=== PATIENT | female | born 1965 | race Caucasian/White ===

== ENCOUNTER 2024-05-25 07:27 | Emergency (ER) | payer MEDICAID, SELFPAY ==
[2024-05-25 07:37] VITALS: BP 139/82; PULSE 80; RESP 18; TEMP 37.3; O2SAT 97; BMI 42.8
--- NOTE | 2024-05-25 07:42 | XR_ITS ---
Examination: CT abdomen and pelvis without contrast. Coronal 3-D reconstructions. Sagittal 2-D reconstructions. Date and time of exam:May 25, 2024 0813 hours COMPARISON: May 18, 2022 INDICATIONS: Generalized abdominal pain with nausea beginning 3 days ago, history acute diverticulitis sigmoid colon on CT examination May 18, 2022 CTDI: vol (mGy): 18.5 DLP: (mGycm): 1168 Technique: Axial images of the abdomen have been obtained, 3 mm slice thickness Intravenous contrast material has not been administered. Low dose protocols were performed. One or more of the following dose reduction techniques were used; automated exposure control, adjustment of the mA and/or KV according to patient size, use of iterative reconstruction technique. Findings: Diffuse fatty infiltration throughout the liver No gallstones Spleen is not enlarged Fatty replacement in the pancreas No adrenal mass No renal or ureteral calculi, no hydronephrosis Aorta is not enlarged Minimal right perinephric stranding No bowel obstruction Normal appendix Colonic diverticulosis Acute diverticulitis descending colon, no peridiverticular abscess Anteverted uterus No adnexal mass Contracted urinary bladder Diffuse [id number] lumbar degenerative disc disease Moderate narrowing hip joints IMPRESSION: Acute diverticulitis descending colon, no peridiverticular abscess
[2024-05-25] MEDS: KETOROLAC INJ 30 MG/ML VIAL IM (07:50)
[2024-05-25 09:49] LABS: Collection Type, Urine Clean Catch
[2024-05-25 10:18] LABS: Bacteria,Urine 1+; Bilirubin,Urine Negative (Negative); Blood,Urine Negative (Negative); Clarity,Urine Clear (Clear/Hazy); Color,Urine Yellow (Lt Yel-Yel); Culture Indicated,Urine Yes; Glucose, Urine Negative (Negative); Ketones,Urine Trace (Negative); Leukocyte Esterase,Urine Negative (Negative); Nitrite,Urine Negative (Negative); PH,Urine 6.5 (5.0-7.0); Protein,Urine 1+ (Neg - Trace); RBC,Urine 6 /hpf (0-3); Specific Gravity,Urine 1.034 (1.001-1.035); Squamous Epithelial Cell,Urine 3 /hpf (0-5); WBC,Urine 10 /hpf (0-5)
[2024-05-25 10:24] LABS: Basophils # (Auto) 0.1 Thou/mm3 (0.0-0.2); Basophils % (Auto) 1 % (0-2.5); Eosinophils # (Auto) 0.2 Thou/mm3 (0.0-0.5); Eosinophils % (Auto) 2 % (0-10); Hematocrit 43.4 % (36.0-46.0); Hemoglobin 14.1 g/dL (12.0-16.0); Immature Granulocytes % (Auto) 0 % (0-0); Immature Granulocytes Auto 0.05 Thou/mm3 (0.00-0.00); Lymphocytes # (Auto) 2.2 Thou/mm3 (1.0-4.8); Lymphocytes % (Auto) 16 % (10-50); Mean Corpuscular HGB Conc 32.5 g/dl (31.0-37.0); Mean Corpuscular Hemoglobin 28.1 pg (25.0-35.0); Mean Corpuscular Volume 87 fL (80-100); Monocytes # (Auto) 1.4 Thou/mm3 (0.0-0.8); Monocytes % (Auto) 10 % (0-12); Neutrophils % (Auto) 72 % (37-80); Nucleated Red Blood Cell % 0 /100 WBC (0); Platelet Count 271 Thou/mm3 (140-440); RDW Standard Deviation 44.5 fL (36.4-46.3); Red Blood Count 5.01 Miln/mm3 (4.00-5.20); White Blood Count 13.9 Thou/mm3 (3.6-11.0)
[2024-05-25 11:06] LABS: Alanine Aminotransferase 19 U/L (10-49); Albumin, Serum 4.5 gm/dL (3.5-5.0); Albumin/Globulin Ratio 1.7 (1.2-2.2); Alkaline Phosphatase 79 U/L (46-116); Anion Gap 9 (7-16); Aspartate Amino Transferase 27 U/L (0-34); BUN/Creatinine Ratio 17 Ratio (12-20); Bilirubin,Total 0.6 mg/dL (0.3-1.2); Blood Urea Nitrogen 17 mg/dL (9-23); Calcium 9.6 mg/dL (8.3-10.6); Calcium (Corrected) 9.6 mg/dL (8.5-10.1); Carbon Dioxide 27.6 mMol/L (20.0-31.0); Chloride 100 mMol/L (98-107); Estimated Creatinine Clearance 89.4 mL/min (>60); Globulin 2.6 gm/dL (2.3-3.5); Glucose 107 mg/dL (74-106); Lipase 22 U/L (12-53); Osmolality,Calculated 275 (275-295); Potassium 4.3 mMol/L (3.4-5.1); Sodium 137 mMol/L (136-145); Total Protein 7.1 gm/dL (5.7-8.2); eGFR > 60 See Note
--- NOTE | 2024-05-25 11:11 | PD.EDABDPN ---
ED Abdominal Pain RME/HPI General Chief Complaint: Abdominal Pain Stated complaint: lupus/diverticulitis flare up Time seen by provider: 05/25/24 07:30 Arrival date/time: 05/25/24 07:27 59-year-old female with history of diverticulitis and lupus presents emergency department complains of lower abdominal pain patient reports no fever no blood in her stool Limitations: no limitations Related Data Home Medications ?Medication ?Instructions ?Recorded ?Confirmed atorvastatin 10 mg tablet 10 mg PO QDAY 11/02/18 12/01/21 hydroxychloroquine 200 mg tablet 200 mg PO QDAY 11/02/18 12/01/21 lisinopril 20 1 tab PO QDAY 11/02/18 12/01/21 mg-hydrochlorothiazide 25 mg tablet folic acid 1 mg tablet 1 mg PO QDAY 12/03/21 12/03/21 pregabalin 50 mg capsule 50 mg PO BID 12/03/21 12/03/21 Previous Rx's ?Medication ?Instructions ?Recorded naproxen 500 mg tablet 500 mg PO BID #30 tabs 05/18/22 ondansetron 4 mg disintegrating 4 mg PO Q8H PRN nausea and 05/18/22 tablet vomiting #15 tabs oxycodone-acetaminophen 5 mg-325 1 tab PO TID PRN pain #15 tabs 07/08/22 mg tablet (Percocet) ciprofloxacin HCl 500 mg tablet 500 mg PO BID 7 days #14 tabs 05/25/24 hydrocodone 5 mg-acetaminophen 325 1 tab PO BID PRN pain #10 tabs 05/25/24 mg tablet metronidazole 500 mg tablet 500 mg PO TID 7 days #21 tabs 05/25/24 Allergies Allergy/AdvReac Type Severity Reaction Status Date / Time No Known Allergies Allergy Verified 05/25/24 07:50 Review of Systems Review of Systems Systems Reviewed: All systems reviewed, normal except as documented Constitutional Constitutional: Reports system reviewed and no additional complaints, except as documented, Denies fever(s) and Denies headache(s) Eyes Eyes: Reports system reviewed and no additional complaints, except as documented and Denies blurry vision ENT Ears, Nose, Mouth, and Throat: Reports system reviewed and no additional complaints, except as documented, Denies headache(s), Denies nasal congestion and Denies nasal discharge Cardiovascular Cardiovascular: Reports system reviewed and no additional complaints, except as documented, Denies chest pain and Denies dyspnea Respiratory Respiratory: Reports system reviewed and no additional complaints, except as documented, Denies chest congestion, Denies cough and Denies dyspnea Gastrointestinal Gastrointestinal: Reports system reviewed and no additional complaints, except as documented, Reports abdominal pain, Denies loose stools, Denies nausea and Denies vomiting Musculoskeletal Musculoskeletal: Reports system reviewed and no additional complaints, except as documented, Denies abnormal gait, Reports back pain, Denies numbness, Denies stiffness and Denies tingling Integumentary/Breasts Skin/Breast: Reports system reviewed and no additional complaints, except as documented and Denies rash Neurologic Neurologic: Reports system reviewed and no additional complaints, except as documented, Reports as per HPI, Denies abnormal gait, Denies headache(s), Denies numbness and Denies tingling Past Medical History Past Medical History NEUROLOGIC: Negative Neurological Disorders CARDIAC: Positive Cardiac Disorders, Hypercholesterolemia and Hypertension; Negative Congestive Heart Failure RESPIRATORY: Negative Chronic Obstructive Pulmonary Disease (COPD) or Asthma GASTROINTESTINAL: Positive Gastrointestinal Disorders and Obesity GENITOURINARY: Negative Genitourinary Disorders or Renal Disease REPRODUCTIVE: Positive Previous Pregnancies (MULTIPLE MISCARRIAGES) MUSCULOSKELETAL: Negative Musculoskeletal Disorders ENDOCRINE: Negative Diabetes Mellitus Type 1 or Diabetes Mellitus Type 2 HEMATOLOGIC: Negative Blood Disorders or Sickle Cell Disease PSYCHO/SOCIAL: Positive Bipolar Disorder, Depression and Anxiety OTHER HISTORY: Positive Autoimmune Disease (LUPUS); Negative Anesthesia Reactions, MRSA, Clostridium Difficile or Cancer Family History FAMILY HISTORY: Positive Family Psychiatric Problems, Family Respiratory Disorders, Family Cardiac Disorders, Family Gastrointestinal Problems, Family Cancer (FATHER AND MOTHER) and Family Surgery Social History SMOKING STATUS: Never smoker ED Exam General Limitations: Present no limitations General appearance: Present alert and in no apparent distress Head Head exam: Present atraumatic Eye Eye exam: Present normal appearance, PERRL and EOMI ENT ENT exam: Present normal exam, normal oropharynx and mucous membranes moist Neck Neck exam: Present normal inspection, full ROM and trachea midline Chest Chest inspection: Present normal inspection and symmetric chest wall rise Respiratory Respiratory exam: Present normal lung sounds bilaterally Cardiovascular Cardiovascular exam: Present regular rate, normal rhythm and normal heart sounds Abdominal Exam Abdominal exam: Present soft, tenderness and normal bowel sounds; Absent hyperactive bowel sounds, hypoactive bowel sounds or tenderness at [place]Bur[place]'s Point Abdominal tenderness: Present LLQ, mild and moderate Extremities Exam Extremities exam: Present normal inspection and full ROM Back Exam Back exam: Present normal inspection and full ROM Neurological Exam Neurological exam: Present alert, oriented X3 and CN II-XII intact Psychiatric Psychiatric exam: Present normal affect and normal mood Skin Skin exam: Present warm, dry, intact and normal color Course Quality Measures none Orders Category Date Time Status CT abdomen pelvis wo con Stat Exams 05/25/24 07:42 Completed CBC Stat Lab 05/25/24 09:46 Completed Comprehensive Metabolic Panel Stat Lab 05/25/24 09:46 Completed Lipase Stat Lab 05/25/24 09:46 Completed UA, C/S IF [Urinalysis, C/S if Indicated] Stat Lab 05/25/24 09:19 Completed Urine Culture Stat Lab 05/25/24 09:19 Received HYDROcodone*/APAP 5/325 [[place] 5/325] Med 05/25/24 12:15 Discontinued 1 tab PO X1 ONE Ketorolac Inj [Toradol Inj] Med 05/25/24 07:42 Discontinued 30 mg IM X1 ONE Lidocaine 1% 20 ml [Xylocaine 1% 20 ML] Med 05/25/24 11:11 Discontinued 2.1 ml INFL X1 ONE cefTRIAXone [Rocephin] Med 05/25/24 11:11 Discontinued 1,000 mg IM X1 ONE Vital Signs Vital signs: Vital Signs Temperature 99.1 F 05/25/24 07:37 Pulse Rate 80 05/25/24 07:37 Respiratory Rate 18 05/25/24 07:37 Blood Pressure 139/82 H 05/25/24 07:37 Pulse Oximetry (%) 97 05/25/24 07:37 Oxygen Delivery Method Room Air 05/25/24 07:37 O2 saturation 97% room air within normal limits Abdominal Pain [facility] MDM Narrative MDM Narrative:: 59-year-old female with history of diverticulitis and lupus presents emergency department complains of lower abdominal pain patient reports no fever no blood in her stool On exam patient does not appear ill or toxic in no acute distress I do suspect patient does have diverticulitis Lab work as well as CT scan obtained CT scan consistent with diverticulitis patient given Rocephin as well as pain medication here Patient discharged home with antibiotics Patient discharged home in no distress to follow-up with primary care doctor in the next 24 to 48 hours and for any worsening symptoms to return to the ER immediately Patient data External records reviewed:: [facility] previous records Clinical information provided by:: patient Social determinants that could affect healthcare access:: none Patient has the following chronic illnesses:: Diverticulitis How is presenting disease/condition affected by chronic disease/condition?: caused by Evaluation data The following diagnostics were reviewed and interpreted by me:: lab results and radiology exam(s) Lab and/or radiology exams considered but not ordered:: Labs and radiology obtained Interpretation Summary: Reviewed by me Medications / Prescriptions Medications or Prescriptions considered but not ordered:: Given Medication administrations:: Medication Administration History Discontinued Medications Hydrocodone Bitart/Acetaminophen (Hydrocodone/Apap 5/325 Tablet) 1 tab PO X1 ONE Stop: 05/25/24 12:16 Last Admin: 05/25/24 12:18 Dose: 1 tab Documented By: AMADOR Ceftriaxone Sodium (Ceftriaxone Sod Inj 1,000 Mg Vial) 1,000 mg IM X1 ONE Stop: 05/25/24 11:12 Last Admin: 05/25/24 12:06 Dose: 1,000 mg Documented By: AMADOR Ketorolac Tromethamine (Ketorolac Inj 30 Mg/Ml Vial) 30 mg IM X1 ONE Stop: 05/25/24 07:43 Last Admin: 05/25/24 07:50 Dose: 30 mg Documented By: Lidocaine HCl (Lidocaine Hcl 1% 20 Ml Vial) 2.1 ml INFL X1 ONE Stop: 05/25/24 11:12 Last Admin: 05/25/24 12:06 Dose: 2.1 ml Documented By: AMADOR Given Consultations Consultation(s) initiated? (list below): No Diagnosis Differential diagnosis abdominal pain: abdominal pain, acute appendicitis, gastroenteritis and pancreatitis Most likely diagnosis given after review of the tests above:: Abdominal pain Admission Indicated Admission indicated?: not indicated Admission Request Was there a request for admission?: No Disposition Plan Disposition Plan: Discharge Discharge Attestation Discharge Attestation: The patient and all family members were given an opportunity to ask questions and understood the discharge instructions. Discharge instructions specifically effects, indications for sooner follow up or return to the emergency department, and the expected course of current diagnosis. Patient condition: Stable Discharge Plan Plan Patient Disposition: HOME (Self Care) Disposition Comment: Stable Prescriptions/Referrals Prescriptions/Med Rec: New ciprofloxacin HCl 500 mg tablet 500 mg PO BID 7 Days Qty: 14 0RF metronidazole 500 mg tablet 500 mg PO TID 7 Days Qty: 21 0RF hydrocodone-acetaminophen 5-325 mg tablet 1 tab PO BID MDD 10 PRN (Reason: pain) Qty: 10 0RF No Action atorvastatin 10 mg Tablet 10 mg PO QDAY lisinopril-hydrochlorothiazide 20-25 mg Tablet 1 tab PO QDAY hydroxychloroquine 200 mg Tablet 200 mg PO QDAY folic acid 1 mg Tablet 1 mg PO QDAY pregabalin 50 mg Capsule 50 mg PO BID naproxen 500 mg tablet 500 mg PO BID Qty: 30 0RF ondansetron 4 mg tablet,disintegrating 4 mg PO Q8H PRN (Reason: nausea and vomiting) Qty: 15 0RF oxycodone-acetaminophen [Percocet] 5-325 mg tablet 1 tab PO TID MDD 3 PRN (Reason: pain) Qty: 15 0RF Referrals: No Primary/Family,Physician [Primary Care Provider] - In 1 week Problem List Clinical Impression: Diverticulitis Patient/Caregiver Discharge Instructions Education Materials: ED Diverticulitis Additional Instructions: Please follow up with your primary care doctor in the next 24-48hrs for any worsening symptoms return here immediately Print Language: Icelandic Stand Alone Forms: [employer] Award Info., Patient Portal Info Letter PA/[employer]OC [employer]ANS INTELLIGENCE OFFICER Supervising Physician PA/AOC PLANS INTELLIGENCE OFFICER Supervising Physician: Dr fairchild
[2024-05-25] MEDS: LIDOCAINE HCL 1% 20 ML VIAL 2.1 ML INFL (12:06)
[2024-05-25] MEDS: cefTRIAXone SOD INJ 1,000 MG VIAL 1000 MG IM (12:06)
[2024-05-25 12:12] VITALS: BP 124/83; PULSE 70; RESP 17; TEMP 36.6; O2SAT 96
[2024-05-25] MEDS: HYDROcodone/APAP 5/325 TABLET 1 TAB PO (12:18)
== END 2024-05-25 12:25 | disposition home or self-care (01) ==
PROVIDERS: Nurse Practitioner Primary Care; Emergency Provider Emergency Medicine
DX: K57.32 Diverticulitis of large intestine without perforation or abscess without bleeding (principal)
CPT/HCPCS: 36415; 74176; 80053; 81001; 83690; 85025; 87086; 96372; 99284; J0696; J1885; J3490; A9270

== ENCOUNTER 2024-09-21 19:57 | Emergency (ER) | payer MEDICAID, SELFPAY ==
[2024-09-21 19:59] VITALS: BMI 42.8
[2024-09-21 21:24] VITALS: BP 116/75; PULSE 68; RESP 18; TEMP 36.9; O2SAT 96
--- NOTE | 2024-09-21 21:55 | XR_ITS ---
Examination: Venous duplex lower extremity sonogram, bilateral. Date and time of exam: September 21, 2024 10:21 PM INDICATIONS: Bilateral leg swelling and pain 1 month Technique: Multiple sonographic images of the deep venous system have been obtained. B-mode/2-D grayscale imaging of vascular structures and Doppler spectral analysis (waveforms) and color performed Both legs are examined. Findings: Deep venous systems do not demonstrate abnormal echogenicity. All visualized deep veins exhibit compressibility. All visualized deep veins exhibit augmentation. Impression: Negative for deep vein thrombosis
--- NOTE | 2024-09-21 22:17 | PD.EDEXREM ---
ED Extremity Problem RME/HPI General Chief complaint: Fall Stated complaint: JUANITO. KNEE SWELLING, HOT TO TOUGH, FALL Time Seen by Provider: 09/21/24 21:55 Arrival date/time: 09/21/24 19:57 59F with history of lupus (on biologic) presents to ED with 1 month of BLE weakness/soreness. Patient states they were so weak today that she fell and landed on her bottom. Patient states he bottom doesn't hurt, but she wants to know what's going on with her legs. Limitations: no limitations Related Data Home Medications ?Medication ?Instructions ?Recorded ?Confirmed atorvastatin 10 mg tablet 10 mg PO QDAY 11/02/18 12/01/21 hydroxychloroquine 200 mg tablet 200 mg PO QDAY 11/02/18 12/01/21 lisinopril 20 1 tab PO QDAY 11/02/18 12/01/21 mg-hydrochlorothiazide 25 mg tablet folic acid 1 mg tablet 1 mg PO QDAY 12/03/21 12/03/21 pregabalin 50 mg capsule 50 mg PO BID 12/03/21 12/03/21 Previous Rx's ?Medication ?Instructions ?Recorded naproxen 500 mg tablet 500 mg PO BID #30 tabs 05/18/22 ondansetron 4 mg disintegrating 4 mg PO Q8H PRN nausea and 05/18/22 tablet vomiting #15 tabs oxycodone-acetaminophen 5 mg-325 1 tab PO TID PRN pain #15 tabs 07/08/22 mg tablet (Percocet) hydrocodone 5 mg-acetaminophen 325 1 tab PO BID PRN pain #10 tabs 05/25/ mg tablet Allergies Allergy/AdvReac Type Severity Reaction Status Date / Time No Known Allergies Allergy Verified 09/21/24 19:58 Review of Systems Review of Systems Systems Reviewed: All systems reviewed, normal except as documented Constitutional Constitutional: Reports system reviewed and no additional complaints, except as documented, Denies fever(s) and Denies headache(s) ENT Ears, Nose, Mouth, and Throat: Denies disequilibrium and Denies headache(s) Cardiovascular Cardiovascular: Reports system reviewed and no additional complaints, except as documented, Denies chest pain and Denies dyspnea Respiratory Respiratory: Reports system reviewed and no additional complaints, except as documented, Denies cough and Denies dyspnea Gastrointestinal Gastrointestinal: Reports system reviewed and no additional complaints, except as documented, Denies abdominal pain, Denies nausea and Denies vomiting Musculoskeletal Musculoskeletal: Reports as per HPI, Reports arthralgias and Reports radiating pain into limb Neurologic Neurologic: Reports system reviewed and no additional complaints, except as documented, Denies confusion, Denies disequilibrium and Denies headache(s) Psychiatric Psychiatric: Denies confusion Past Medical History Past Medical History NEUROLOGIC: Negative Neurological Disorders CARDIAC: Positive Cardiac Disorders, Hypercholesterolemia and Hypertension; Negative Congestive Heart Failure RESPIRATORY: Negative Chronic Obstructive Pulmonary Disease (COPD) or Asthma GASTROINTESTINAL: Positive Gastrointestinal Disorders and Obesity GENITOURINARY: Negative Genitourinary Disorders or Renal Disease REPRODUCTIVE: Positive Previous Pregnancies (MULTIPLE MISCARRIAGES) MUSCULOSKELETAL: Negative Musculoskeletal Disorders ENDOCRINE: Negative Diabetes Mellitus Type 1 or Diabetes Mellitus Type 2 HEMATOLOGIC: Negative Blood Disorders or Sickle Cell Disease PSYCHO/SOCIAL: Positive Bipolar Disorder, Depression and Anxiety OTHER HISTORY: Positive Autoimmune Disease (LUPUS); Negative Anesthesia Reactions, MRSA, Clostridium Difficile or Cancer Family History FAMILY HISTORY: Positive Family Psychiatric Problems, Family Respiratory Disorders, Family Cardiac Disorders, Family Gastrointestinal Problems, Family Cancer (FATHER AND MOTHER) and Family Surgery Social History SMOKING STATUS: Former smoker ED Exam General Limitations: Present no limitations General appearance: Present alert and in no apparent distress Head Head exam: Present atraumatic Eye Eye exam: Present normal appearance, PERRL and EOMI ENT ENT exam: Present normal exam, normal oropharynx and mucous membranes moist Neck Neck exam: Present normal inspection, full ROM and trachea midline Chest Chest inspection: Present normal inspection and symmetric chest wall rise Respiratory Respiratory exam: Present normal lung sounds bilaterally Cardiovascular Cardiovascular exam: Present regular rate, normal rhythm and normal heart sounds Abdominal Exam Abdominal exam: Present soft and normal bowel sounds Extremities Exam Extremities exam: Present normal inspection and full ROM Back Exam Back exam: Present normal inspection and full ROM Neurological Exam Neurological exam: Present alert, oriented X3 and CN II-XII intact Psychiatric Psychiatric exam: Present normal affect and normal mood Skin Skin exam: Present warm, dry, intact and normal color Course Quality Measures none Orders Category Date Time Status US venous doppler LE BI Stat Exams 09/21/24 21:55 Completed CBC Stat Lab 09/21/24 22:18 Completed CMP [Comprehensive Metabolic Panel] Stat Lab 09/21/24 22:18 Completed Creatine Kinase Stat Lab 09/21/24 22:18 Completed Mag [Magnesium] Stat Lab 09/21/24 22:18 Completed Morphine Inj Med 09/22/24 02:27 Discontinued 5 mg IM X1 ONE Vital Signs Vital signs: Vital Signs Temperature 98.5 F 09/21/24 21:24 Pulse Rate 68 09/21/24 21:24 Respiratory Rate 18 09/21/24 21:24 Blood Pressure 116/75 09/21/24 21:24 Pulse Oximetry (%) 96 09/21/24 21:24 Oxygen Delivery Method Room Air 09/21/24 21:24 O2 at 96% on RA and WNLs Extremity Problem MDM Narrative MDM Narrative:: 59F with history of lupus (on biologic) presents to ED with 1 month of BLE weakness/soreness. Patient states they were so weak today that she fell and landed on her bottom. Patient states he bottom doesn't hurt, but she wants to know what's going on with her legs. Physical exam reveals no back/hip tenderness. BLE exam grossly intact. Patient is able to stand. Patient is afebrile, calm, and alert. US no DVT. No leukocytosis. CMP unremarkable. CK normal. Mag normal. Likely sciatica given pain along sciatic nerve path. Also, possible drug reaction given symptoms started after biologic was started. Patient data External records reviewed:: [facility] previous records Clinical information provided by:: patient Social determinants that could affect healthcare access:: none Patient has the following chronic illnesses:: lupus How is presenting disease/condition affected by chronic disease/condition?: exacerbated by Evaluation data The following diagnostics were reviewed and interpreted by me:: lab results and radiology exam(s) Lab and/or radiology exams considered but not ordered:: ordered Interpretation Summary: above Medications / Prescriptions Medications or Prescriptions considered but not ordered:: not ordered Medication administrations:: Medication Administration History Discontinued Medications Morphine Sulfate (Morphine Sulf Inj 10 Mg/Ml Vial) 5 mg IM X1 ONE Stop: 09/22/24 02:28 Last Admin: 09/22/24 03:06 Dose: 5 mg Documented By: DAVID n/a Consultations Consultation(s) initiated? (list below): No Diagnosis Extremity Problem Differential Diagnosis: herpes zoster, gout, cellulitis, superficial thrombophlebitis, deep venous thrombosis of upper extremity, lower extremity edema, deep vein thrombosis of lower extremity and other (sciatica) Most likely diagnosis given after review of the tests above:: drug adverse reaction and sciatica Admission Indicated Admission indicated?: not indicated Admission Request Was there a request for admission?: No Disposition Plan Disposition Plan: Discharge Discharge Attestation Discharge Attestation: The patient and all family members were given an opportunity to ask questions and understood the discharge instructions. Discharge instructions specifically effects, indications for sooner follow up or return to the emergency department, and the expected course of current diagnosis. Patient condition: Stable Discharge Plan Plan Patient Disposition: HOME (Self Care) Discharge Disposition comment: Stable Prescriptions/Referrals Prescriptions/Med Rec: No Action atorvastatin 10 mg Tablet 10 mg PO QDAY lisinopril-hydrochlorothiazide 20-25 mg Tablet 1 tab PO QDAY hydroxychloroquine 200 mg Tablet 200 mg PO QDAY folic acid 1 mg Tablet 1 mg PO QDAY pregabalin 50 mg Capsule 50 mg PO BID hydrocodone-acetaminophen 5-325 mg tablet 1 tab PO BID MDD 10 PRN (Reason: pain) Qty: 10 0RF naproxen 500 mg tablet 500 mg PO BID Qty: 30 0RF ondansetron 4 mg tablet,disintegrating 4 mg PO Q8H PRN (Reason: nausea and vomiting) Qty: 15 0RF oxycodone-acetaminophen [Percocet] 5-325 mg tablet 1 tab PO TID MDD 3 PRN (Reason: pain) Qty: 15 0RF Referrals: No Primary/Family,Physician [Primary Care Provider] - In 1 week Problem List Clinical Impression: Adverse drug reaction, Sciatica Patient/Caregiver Discharge Instructions Education Materials: ED Drug Reaction, Other, ED Sciatica Additional Instructions: Please follow-up with PCP within 24-48 hours and return immediately if symptoms worsen. If problem persists, recommend outpatient PT and/or MRI follow-up. In the meantime, rest, use ice/heat, and/or compression. Follow-up with barrel centerer about meds and joint/leg swelling. Print Language: Slovak Stand Alone Forms: Patient Portal Info Letter PA/DIRECTOR OF MEDICAL STAFF SERVICES Supervising Physician SOPHIA/RONIT Supervising Physician: Dr. Reeves
[2024-09-21 22:33] LABS: Basophils # (Auto) 0.1 Thou/mm3 (0.0-0.2); Basophils % (Auto) 1 % (0-2.5); Eosinophils # (Auto) 0.3 Thou/mm3 (0.0-0.5); Eosinophils % (Auto) 3 % (0-10); Hematocrit 44.4 % (36.0-46.0); Hemoglobin 14.6 g/dL (12.0-16.0); Immature Granulocytes % (Auto) 0 % (0-0); Immature Granulocytes Auto 0.04 Thou/mm3 (0.00-0.00); Lymphocytes # (Auto) 2.5 Thou/mm3 (1.0-4.8); Lymphocytes % (Auto) 25 % (10-50); Mean Corpuscular HGB Conc 32.9 g/dl (31.0-37.0); Mean Corpuscular Hemoglobin 28.3 pg (25.0-35.0); Mean Corpuscular Volume 86 fL (80-100); Monocytes # (Auto) 0.9 Thou/mm3 (0.0-0.8); Monocytes % (Auto) 9 % (0-12); Neutrophils # (Auto) 6.2 Thou/mm3 (1.8-7.7); Neutrophils % (Auto) 62 % (37-80); Nucleated Red Blood Cell % 0 /100 WBC (0); Platelet Count 308 Thou/mm3 (140-440); RDW Standard Deviation 45.1 fL (36.4-46.3); Red Blood Count 5.15 Miln/mm3 (4.00-5.20)
[2024-09-21 22:54] LABS: Alanine Aminotransferase 24 U/L (10-49); Albumin, Serum 4.5 gm/dL (3.5-5.0); Albumin/Globulin Ratio 1.7 (1.2-2.2); Alkaline Phosphatase 84 U/L (46-116); Anion Gap 11 (7-16); Aspartate Amino Transferase 28 U/L (0-34); BUN/Creatinine Ratio 19 Ratio (12-20); Bilirubin,Total 0.3 mg/dL (0.3-1.2); Blood Urea Nitrogen 19 mg/dL (9-23); Calcium 9.9 mg/dL (8.3-10.6); Calcium (Corrected) 9.9 mg/dL (8.5-10.1); Carbon Dioxide 29.1 mMol/L (20.0-31.0); Chloride 98 mMol/L (98-107); Creatine Kinase 151 U/L (34-171); Estimated Creatinine Clearance 89.4 mL/min (>60); Globulin 2.7 gm/dL (2.3-3.5); Glucose 112 mg/dL (74-106); Magnesium 1.9 mg/dL (1.6-2.6); Osmolality,Calculated 278 (275-295); Potassium 3.8 mMol/L (3.4-5.1); Sodium 138 mMol/L (136-145); Total Protein 7.2 gm/dL (5.7-8.2); eGFR > 60 See Note
[2024-09-22 02:10] VITALS: BP 121/80; PULSE 61; RESP 18; TEMP 36.6; O2SAT 97
[2024-09-22] MEDS: MORPHINE SULF INJ 10 MG/ML VIAL 5 MG IM (03:06)
== END 2024-09-22 03:22 | disposition home or self-care (01) ==
PROVIDERS: Physician Assistant; Emergency Provider Emergency Medicine
DX: M54.32 Sciatica, left side (principal); M54.31 Sciatica, right side; M79.89 Other specified soft tissue disorders; T50.905A Adverse effect of unspecified drugs, medicaments and biological substances, initial encounter
CPT/HCPCS: 36415; 80053; 82550; 83735; 85025; 93970; 96372; 99284; J2270

== ENCOUNTER 2024-09-23 15:46 | Emergency (ER) | payer MEDICAID, SELFPAY ==
[2024-09-23 15:59] VITALS: BP 128/82; PULSE 67; RESP 17; TEMP 37.1; O2SAT 96; BMI 42.8
--- NOTE | 2024-09-23 16:05 | PD.EDFALL ---
ED Fall Injury RME/HPI General Chief Complaint: Fall Stated Complaint: Fall 2 days ago, pain is back Time Seen by Provider: 09/23/24 15:50 Source: patient Arrival date/time: 09/23/24 15:46 59-year-old female with a history of hyperlipidemia, hypertension, sciatica presents to the emergency room with a chief complaint of pain to her bilateral lower extremities after a fall that occurred 2 days ago. Mode of arrival: ambulatory Limitations: no limitations Related Data Home Medications ?Medication ?Instructions ?Recorded ?Confirmed atorvastatin 10 mg tablet 10 mg PO QDAY 11/02/18 12/01/21 hydroxychloroquine 200 mg tablet 200 mg PO QDAY 11/02/18 12/01/21 lisinopril 20 1 tab PO QDAY 11/02/18 12/01/21 mg-hydrochlorothiazide 25 mg tablet folic acid 1 mg tablet 1 mg PO QDAY 12/03/21 12/03/21 pregabalin 50 mg capsule 50 mg PO BID 12/03/21 12/03/21 Previous Rx's ?Medication ?Instructions ?Recorded naproxen 500 mg tablet 500 mg PO BID #30 tabs 05/18/22 ondansetron 4 mg disintegrating 4 mg PO Q8H PRN nausea and 05/18/22 tablet vomiting #15 tabs oxycodone-acetaminophen 5 mg-325 1 tab PO TID PRN pain #15 tabs 07/08/22 mg tablet (Percocet) hydrocodone 5 mg-acetaminophen 325 1 tab PO BID PRN pain #10 tabs 05/25/ mg tablet Allergies Allergy/AdvReac Type Severity Reaction Status Date / Time No Known Allergies Allergy Verified 09/23/24 15:48 Review of Systems Review of Systems Systems Reviewed: All systems reviewed, normal except as documented Constitutional Constitutional: Reports system reviewed and no additional complaints, except as documented, Denies fatigue, Denies fever(s), Denies headache(s) and Denies weakness Eyes Eyes: Reports system reviewed and no additional complaints, except as documented, Denies blurry vision and Denies change in vision ENT Ears, Nose, Mouth, and Throat: Reports system reviewed and no additional complaints, except as documented, Denies otalgia, Denies headache(s), Denies nasal congestion, Denies throat swelling and Denies vertigo Cardiovascular Cardiovascular: Reports system reviewed and no additional complaints, except as documented, Denies chest pain, Denies dyspnea and Denies dyspnea on exertion Respiratory Respiratory: Reports system reviewed and no additional complaints, except as documented, Denies chest congestion, Denies cough, Denies dyspnea, Denies dyspnea on exertion and Denies wheezing Gastrointestinal Gastrointestinal: Reports system reviewed and no additional complaints, except as documented, Denies abdominal pain, Denies cramping, Denies nausea and Denies vomiting Genitourinary Genitourinary: Reports system reviewed and no additional complaints, except as documented Musculoskeletal Musculoskeletal: Reports system reviewed and no additional complaints, except as documented and Denies back pain Integumentary/Breasts Skin/Breast: Reports system reviewed and no additional complaints, except as documented and Denies wounds Neurologic Neurologic: Reports system reviewed and no additional complaints, except as documented, Denies confusion, Denies headache(s), Denies lack of coordination, Denies vertigo and Denies weakness Psychiatric Psychiatric: Reports system reviewed and no additional complaints, except as documented, Denies anxiety, Denies confusion, Denies depression, Denies paranoia, Denies suicidal ideation and Denies tactile hallucinations Endocrine Endocrine: Reports system reviewed and no additional complaints, except as documented and Denies fatigue Hematologic/Lymphatic Hematologic/Lymphatic: Reports system reviewed and no additional complaints, except as documented and Denies lymphadenopathy Allergic/Immunologic Allergic/Immunologic: Reports system reviewed and no additional complaints, except as documented, Denies throat swelling, Denies urticaria and Denies wheezing Past Medical History Past Medical History NEUROLOGIC: Negative Neurological Disorders CARDIAC: Positive Cardiac Disorders, Hypercholesterolemia and Hypertension; Negative Congestive Heart Failure RESPIRATORY: Negative Chronic Obstructive Pulmonary Disease (COPD) or Asthma GASTROINTESTINAL: Positive Gastrointestinal Disorders and Obesity GENITOURINARY: Negative Genitourinary Disorders or Renal Disease REPRODUCTIVE: Positive Previous Pregnancies (MULTIPLE MISCARRIAGES) MUSCULOSKELETAL: Negative Musculoskeletal Disorders ENDOCRINE: Negative Diabetes Mellitus Type 1 or Diabetes Mellitus Type 2 HEMATOLOGIC: Negative Blood Disorders or Sickle Cell Disease PSYCHO/SOCIAL: Positive Bipolar Disorder, Depression and Anxiety OTHER HISTORY: Positive Autoimmune Disease (LUPUS); Negative Anesthesia Reactions, MRSA, Clostridium Difficile or Cancer Family History FAMILY HISTORY: Positive Family Psychiatric Problems, Family Respiratory Disorders, Family Cardiac Disorders, Family Gastrointestinal Problems, Family Cancer (FATHER AND MOTHER) and Family Surgery Social History SMOKING STATUS: Never smoker ED Exam General Limitations: Present no limitations General appearance: Present alert and in no apparent distress Head Head exam: Present atraumatic Eye Eye exam: Present normal appearance, PERRL and EOMI ENT ENT exam: Present normal exam, normal oropharynx and mucous membranes moist Neck Neck exam: Present normal inspection, full ROM and trachea midline Chest Chest inspection: Present normal inspection and symmetric chest wall rise Respiratory Respiratory exam: Present normal lung sounds bilaterally Cardiovascular Cardiovascular exam: Present regular rate, normal rhythm and normal heart sounds Abdominal Exam Abdominal exam: Present soft and normal bowel sounds Extremities Exam Extremities exam: Present normal inspection and full ROM Expanded Lower Extremity Exam Hip/Pelvis exam: Present normal inspection Upper leg exam: Present normal inspection Knee exam: Present normal inspection Lower leg exam: Present normal inspection Ankle exam: Present normal inspection Foot/toe exam: Present normal inspection Neurovascular/Tendon exam: Present normal capillary refill Gait: observed and normal Back Exam Back exam: Present normal inspection and full ROM Neurological Exam Neurological exam: Present alert, oriented X3 and CN II-XII intact Psychiatric Psychiatric exam: Present normal affect and normal mood Skin Skin exam: Present warm, dry, intact and normal color Course Quality Measures none Orders Category Date Time Status Ketorolac Inj [Toradol Inj] Med 09/23/24 16:00 Discontinued 30 mg IM X1 ONE Vital Signs Vital signs: Vital Signs Temperature 98.8 F 09/23/24 15:59 Pulse Rate 67 09/23/24 15:59 Respiratory Rate 17 09/23/24 15:59 Blood Pressure 128/82 09/23/24 15:59 Pulse Oximetry (%) 96 09/23/24 15:59 Oxygen Delivery Method Room Air 09/23/24 15:59 O2 saturation 96% within normal Fall MDM Narrative MDM Narrative:: 59-year-old female with a history of hyperlipidemia, hypertension, sciatica presents to the emergency room with a chief complaint of pain to her bilateral lower extremities after a fall that occurred 2 days ago. Patient is hemodynamically stable and in no apparent distress. Patient states she had a fall that occurred 4 days ago. Patient states she did not fall on her knees but instead had a twisting motion and fell on her butt. There was no trauma to her legs. Patient was educated to follow-up with her primary care provider for possible referral for an MRI to check for any ligament damage or tears. Patient states she has an appointment with her primary care provider but she was having a lot of pain so decided to come to the emergency room. Pain medication was given to the patient patient was reevaluated with significant improvement to her symptoms Patient was discharged and educated to follow-up with primary care provider in the next 24 to 48 hours and return to the emergency room for any evidence of worsening signs or symptoms Patient data External records reviewed:: [facility] previous records Clinical information provided by:: patient Social determinants that could affect healthcare access:: none Patient has the following chronic illnesses:: No chronic illness How is presenting disease/condition affected by chronic disease/condition?: no chronic disease Evaluation data The following diagnostics were reviewed and interpreted by me:: lab results and radiology exam(s) Lab and/or radiology exams considered but not ordered:: Labs radiology exams considered and ordered Interpretation Summary: N/A Medications / Prescriptions Medications or Prescriptions considered but not ordered:: Medication given Medication administrations:: Medication Administration History Discontinued Medications Ketorolac Tromethamine (Ketorolac Inj 60 Mg/2 Ml Vial) 30 mg IM X1 ONE Stop: 09/23/24 16:01 Last Admin: 09/23/24 16:23 Dose: 30 mg Documented By: OA Medication given Consultations Consultation(s) initiated? (list below): No Diagnosis Fall Differential Diagnosis: other (Bilateral lower extremity pain) Most likely diagnosis given after review of the tests above:: Bilateral lower extremity pain Admission Indicated Admission indicated?: not indicated Admission Request Was there a request for admission?: No Disposition Plan Disposition Plan: Discharge Discharge Attestation Discharge Attestation: The patient and all family members were given an opportunity to ask questions and understood the discharge instructions. Discharge instructions specifically effects, indications for sooner follow up or return to the emergency department, and the expected course of current diagnosis. Patient condition: Stable Discharge Plan Plan Patient Disposition: HOME (Self Care) Discharge Disposition comment: Stable Prescriptions/Referrals Prescriptions/Med Rec: No Action atorvastatin 10 mg Tablet 10 mg PO QDAY lisinopril-hydrochlorothiazide 20-25 mg Tablet 1 tab PO QDAY hydroxychloroquine 200 mg Tablet 200 mg PO QDAY folic acid 1 mg Tablet 1 mg PO QDAY pregabalin 50 mg Capsule 50 mg PO BID hydrocodone-acetaminophen 5-325 mg tablet 1 tab PO BID MDD 10 PRN (Reason: pain) Qty: 10 0RF naproxen 500 mg tablet 500 mg PO BID Qty: 30 0RF ondansetron 4 mg tablet,disintegrating 4 mg PO Q8H PRN (Reason: nausea and vomiting) Qty: 15 0RF oxycodone-acetaminophen [Percocet] 5-325 mg tablet 1 tab PO TID MDD 3 PRN (Reason: pain) Qty: 15 0RF Referrals: No Primary/Family,Physician [Primary Care Provider] - In 1 week Problem List Clinical Impression: Acute bilateral knee pain Patient/Caregiver Discharge Instructions Education Materials: ED Arthralgia Additional Instructions: Please follow-up with your primary care provider in the next 24 to 48 hours If your signs and symptoms continue you will need to follow-up with your primary care provider for possible MRI to check for any ligament damage or strains For any evidence of worsening signs or symptoms return to the emergency room immediately Print Language: [place]ian Stand Alone Forms: [employer] Award Info., Patient Portal Info Letter PA/AGRICULTURAL ADVISER Supervising Physician PA/RONIT Supervising Physician: Dr. Mireles
[2024-09-23] MEDS: KETOROLAC INJ 60 MG/2 ML VIAL 30 MG IM (16:23)
== END 2024-09-23 17:35 | disposition home or self-care (01) ==
PROVIDERS: Emergency Provider Family Medicine
DX: M25.562 Pain in left knee (principal); M25.561 Pain in right knee; W19.XXXA Unspecified fall, initial encounter
CPT/HCPCS: 96372; 99283; J1885

== ENCOUNTER → 2025-04-20 | Outpatient (CLI) | payer MEDICAID, SELFPAY ==
[2025-04-20 12:14] LABS: Collection Type, Urine Clean Catch; RBC,Urine 0 /hpf (0-3)
[2025-04-20 13:20] LABS: Bilirubin,Urine Negative (Negative); Blood,Urine Negative (Negative); Clarity,Urine Clear (Clear/Hazy); Color,Urine Lt-Yellow (Lt Yel-Yel); Culture Indicated,Urine Not Indicated; Glucose, Urine Negative (Negative); Ketones,Urine Negative (Negative); Leukocyte Esterase,Urine Negative (Negative); Nitrite,Urine Negative (Negative); PH,Urine 7.5 (5.0-7.0); Protein,Urine Negative (Neg - Trace); Specific Gravity,Urine 1.010 (1.001-1.035); Squamous Epithelial Cell,Urine 1 /hpf (0-5); Urobilinogen,Urine Negative mg/dL (0.0-1.0); WBC,Urine < 1 /hpf (0-5)
[2025-04-20 13:36] LABS: Creatinine MALB Rnd Ur 34 mg/dL (30-125); Microalbumin, Random Urine < 3 mg/L (0-300)
== END | disposition home or self-care (01) ==
PROVIDERS: Referring Provider Nurse Practitioner; Visit Provider Nurse Practitioner
DX: M32.9 Systemic lupus erythematosus, unspecified (principal); N39.0 Urinary tract infection, site not specified; R74.8 Abnormal levels of other serum enzymes
CPT/HCPCS: 81001; 82043; 82570